=== PATIENT | female | born 1990 | race Caucasian/White ===

== ENCOUNTER 2021-04-21 10:52 | Emergency (ER) | payer OTHER, SELFPAY ==
[2021-04-21 11:09] VITALS: BP 134/92; PULSE 104; RESP 16; TEMP 36.4; O2SAT 97
--- NOTE | 2021-04-21 11:21 | W.ED.GENAD ---
Discharge Plan Disposition Patient Disposition: HOME Condition: Stable Discharge Details Clinical Impression: Diarrhea Primary Care Provider: Unknown,Unknown ED Provider: Cherelle Kovacs Discharge Instructions Instructions: Acute Diarrhea (ED) Additional Instructions: Brat diet. Bananas rice apples toast. Drink Gatorade or similar electrolyte replacement while having diarrhea. Follow up with primary care provider in 3-5 days. Return to ED sooner if any worsening or concerns. Increase oral fluids. Return to the ER for any fever, worsening abdominal pain, unable to keep any liquids down or any concerns. Collect the stool sample and bring into the lab at your convenience. If it is longer than 8 hours after obtaining the sample please keep it on ice or refrigerate the sample. Medical Decision Making 30-year-old female presents to the ER with chief complaint diarrhea abdominal cramping and nausea for the last 3 to 4 days. Patient states that she went on a hike on and possibly drank some unfiltered water. Since then she has had up to 20 episodes of diarrhea a day. She has been taking Imodium at home with little to no relief and did take some activated charcoal today. No vomiting. She does report some mild bright red blood specks in the stool denies any mucus. Denies any other sick contacts. No other associated symptoms. Stool studies ordered, patient was unable to given a sufficient amount of sample here in the department. Outpatient stool sample ordered. Patient instructed on collection by full time staff interpreter. Patient was given Zofran ODT to go. Instructed to follow-up with primary care provider and/or return to the emergency department for any worsening. Patient remained hemodynamically stable throughout stay. This text was generated using [employer] system, please disregard any oddities of phrase or misspellings. HPI General Mode of arrival: ambulatory. Date/Time Provider Initiated Documentation: 04/21/21 11:19. Limitations to Documentation: no limitations. Information obtained by: patient. HPI Narrative: 30-year-old female presents to the ER with chief complaint diarrhea abdominal cramping and nausea for the last 3 to 4 days. Patient states that she went on a hike on and possibly drank some unfiltered water. Since then she has had up to 20 episodes of diarrhea a day. She has been taking Imodium at home with little to no relief and did take some activated charcoal today. No vomiting. She does report some mild bright red blood specks in the stool denies any mucus. Denies any other sick contacts. No other associated symptoms. Related Data Allergies Allergy/AdvReac Type Severity Reaction Status Date / Time amoxicillin AdvReac Unverified 04/21/21 11:13 General Stated Complaint: Abd Prob CORINA: 3 Review of Systems All systems reviewed & are unremarkable except as noted in HPI and below Gastrointestinal Gastrointestinal: Reports abdominal pain, Reports change in stool character, Reports cramping, Reports diarrhea, Reports nausea, Denies vomiting and Denies hematemesis [facility] Social History Smoking/Tobacco Use Status: Never Smoking risk assessment performed?: Yes Alcohol Intake: current Alcohol Intake frequency: holidays/special occasions only Substance use type: does not use Exam Narrative Exam Narrative: Constitutional: Alert and oriented x3. Appears stated age. Normal body habitus. Head: Normocephalic, no trauma. Eyes: Pupils PERRLA, Red reflex noted, EOM's intact. Eyelids symmetrical without lesions, discharge, or swelling. ENT: Bilateral TM's WNL, External ear normal to inspection, no mastoid TTP, swelling, or erythema, Nasal turbinates WNL, no nasal discharge. Normal dentition, Posterior pharynx WNL, no exudate. Chest: RRR, Normal S1, S2, distal pulses intact. Resp: Lungs clear to auscultation bilaterally, no wheezes, rales, or rhonchi. Abdomen: Soft, nondistended nontender to palpation all 4 quadrants. Musculoskeletal: Normal gait, 5/5 strength to all four extremities. Skin: No suspicious rashes or lesions. Capillary refill less than 2 sec. Neurologic: Cranial nerves II-XII intact. Alert and oriented x 3. DTR's intact. Hematologic/Lymphatic: No ecchymosis, no lymphadenopathy. Course Vital Signs Vital signs: Vital Signs Temperature 36.4 C L 04/21/21 11:09 Pulse 104 H 04/21/21 11:09 Respiratory Rate 16 04/21/21 11:09 Blood Pressure 134/92 H 04/21/21 11:09 Pulse Oximetry 97 04/21/21 11:09 Temperature 36.4 C L 04/21/21 11:09 Temperature Source Skin 04/21/21 11:09 Pulse 104 H 04/21/21 11:09 Respiratory Rate 16 04/21/21 11:09 Respiratory Effort 04/21/21 11:13 Blood Pressure 134/92 H 04/21/21 11:09 Blood Pressure Position Sitting 04/21/21 11:09 Pulse Oximetry 97 04/21/21 11:09 Oxygen Delivery Method Room Air 04/21/21 11:09 Oxygen Flow Rate 0 04/21/21 11:09 Pain Level 1 04/21/21 11:09
[2021-04-21] MEDS: Ondansetron O.D.T. 4 MG TABEF, 3 TABS/BTL PO (12:20)
[2021-04-21] MEDS: Ondansetron O.D.T. 4 MG TABEF PO (12:20)
--- NOTE | 2021-04-23 13:23 | W.ED.FU ---
Date of service: 04/23/21 Time of Service: 13:23 Follow Up Plan: Call received from Lab regarding stool sample. Positive for Cryptosporidium. Call made to patient. No answer, left voicemail.
== END 2021-04-21 12:28 | disposition home or self-care (01) ==
LOC: ER 12:29
PROVIDERS: Emergency Provider Registered Nurse Emergency
DX: R19.7 Diarrhea, unspecified (principal); R10.9 Unspecified abdominal pain
CPT/HCPCS: 99283

== ENCOUNTER 2021-04-22 14:04 | Outpatient (REF) | payer OTHER, SELFPAY ==
[2021-04-23 11:15] LABS: Campylobacter PCR Negative (Negative); Salmonella PCR Negative (Negative); Shiga Toxin PCR Negative (Negative); Shigella/Enteroinvasive Ecoli Negative (Negative)
--- NOTE | 2021-04-25 10:36 | W.ED.FU ---
Date of service: 04/23/21 Follow Up Plan: Spoke with patient, made aware regarding positive Cryptosporidium, feeling improvement, no additional intervention at this time
== END 2021-04-22 14:05 | disposition home or self-care (01) ==
LOC: LBN 14:04
PROVIDERS: Visit Provider Registered Nurse Emergency
DX: R19.7 Diarrhea, unspecified (principal)
CPT/HCPCS: 87329; 87505; 87177

== ENCOUNTER 2022-08-07 00:58 | Outpatient (CLI) | payer MEDICAID, SELFPAY ==
[2022-08-07 09:18] LABS: Kit/Specimen SENT
[2022-08-07 09:38] LABS: Abs Immature Grans 0.01 10^3/uL (0.0-0.06); Absolute Basophil Count 0.04 10^3/uL (0.0-0.2); Absolute Eosinophil Count 0.12 10^3/uL (0.0-0.7); Absolute Lymphocyte Count 1.32 10^3/uL (1.2-3.4); Absolute Monocyte Count 0.28 10^3/uL (0.1-0.8); Absolute Neutrophil Count 3.05 10^3/uL (1.2-6.7); Basophils % 0.8; Eosinophils % 2.5; HCT 35.5 % (36.0-46.0); HGB 11.4 g/dL (11.2-15.7); Immature Grans % 0.2; Lymphocytes % 27.4; MCH 25.2 pg (27.0-33.0); MCHC 32.1 % (32.0-36.0); MCV 78 fL (80-95); MPV 9.4 fL (8.0-11.0); Monocytes % 5.8; Neutrophils % 63.3; Platelet Count 223 10^3/uL (130-400); RBC 4.53 10^6/uL (3.93-5.22); RDW 13.4 % (11.7-14.6); RDW-SD 38.5 fL; WBC 4.82 10^3/uL (4.4-10.8)
[2022-08-07 09:56] LABS: Hemoglobin A1C 5.4 % (<5.7)
[2022-08-07 10:23] LABS: Iron 46 ug/dL (50-170); Total Iron Binding Capacity 297 ug/dL (250-450); Transferrin Sat 15 % (15-50)
[2022-08-07 10:27] LABS: ALT 16 U/L (14-59); AST 14 U/L (15-37); Alkaline Phosphatase 55 U/L (46-116); BUN 11 mg/dL (7-18); Bilirubin, Total 0.4 mg/dL (0.2-1.0); CREATININE 0.7 mg/dL (0.55-1.02); Calcium 8.6 mg/dL (8.5-10.1); Chloride 105 mmol/L (98-107); Cholesterol 171 mg/dL (<200); Estimated GFR 117.77 (mL/min/1.73m2); Ferritin 21 ng/mL (8-252); Glucose 94 mg/dL (74-106); HDL Cholesterol 65 mg/dL (40-60); Potassium 4.1 mmol/L (3.5-5.1); Sodium 139 mmol/L (136-145); TSH 1.48 uIU/mL (0.36-3.74); Total Protein 7.4 g/dL (6.4-8.2); Vitamin B12 703 pg/mL (193-986)
[2022-08-07 10:30] LABS: Triglyceride < 25 mg/dL (<150)
[2022-08-07 10:49] LABS: Vitamin D 25 Total 22.6 ng/mL (30-100)
[2022-08-07 13:07] LABS: FREE T4 0.81 ng/dL (0.76-1.46)
[2022-08-07 20:59] LABS: T3,Free 3.7 pg/mL (2.8-5.3)
[2022-08-07 21:32] LABS: Thyroperoxidase Antibody <28 U/mL (<=60)
== END 2022-08-07 00:59 | disposition home or self-care (01) ==
PROVIDERS: Visit Provider Naturopath
DX: Z00.01 Encounter for general adult medical examination with abnormal findings (principal); Z83.49 Family history of other endocrine, nutritional and metabolic diseases
CPT/HCPCS: 36415; 80053; 80061; 82306; 82607; 82728; 83036; 83540; 83550; 84439; 84443; 84481; 85025; 86376

== ENCOUNTER 2023-03-25 04:33 | Outpatient (CLI) | payer MEDICAID, SELFPAY ==
[2023-03-25 13:34] LABS: FREE T4 1.08 ng/dL (0.76-1.46)
[2023-03-25 22:25] LABS: T3,Free 3.5 pg/mL (2.8-5.3)
[2023-03-30 13:14] LABS: T3 (Triiodothyronine) Reverse 18 ng/dL (10-24)
== END 2023-03-25 04:34 | disposition home or self-care (01) ==
LOC: LBO 04:33
PROVIDERS: Visit Provider Naturopath
DX: R53.83 Other fatigue (principal)
CPT/HCPCS: 36415; 84439; 84481; 84482

== ENCOUNTER 2024-02-08 14:48 | Outpatient (REF) | payer BC, SELFPAY ==
[2024-02-09 22:56] LABS: Varicella Zoster DNA Result Positive ((See Note))
[2024-02-09 22:59] LABS: HSV 1 DNA Result Negative (Negative); HSV 2 DNA Result Negative (Negative)
== END 2024-02-08 14:49 | disposition home or self-care (01) ==
LOC: LBN 14:48
PROVIDERS: Visit Provider Nurse Practitioner Family
DX: R21 Rash and other nonspecific skin eruption (principal)
CPT/HCPCS: 87529; 87798